=== PATIENT | female | born 1945 | race African-American/Black ===

== ENCOUNTER 2019-04-18 11:35 | Inpatient (IN) | payer OTHER ==
[~2019-04-18] VITALS: Ht 167.6 cm; Wt 95.7 kg
[2019-04-18] MEDS ORDERED: MORPHINE SULFATE 4 MG/ML CPJ (NOT FOR IM USE) IV STA (12:58)
[2019-04-18] MEDS ORDERED: ONDANSETRON HCL 4MG/2ML INJ IV STA (12:58)
[2019-04-18 13:23] LABS: BASOPHILS % 0.6 % (0.0-2.0); EOSINOPHILS % 2.4 % (0.0-5.0); HEMATOCRIT. 40.3 % (36.0-48.0); HEMOGLOBIN. 13.6 g/dL (12.0-16.0); LYMPHOCYTES % 26.2 % (20.0-50.0); MEAN CORPUSCULAR HEMOGLOBIN 32.4 pg (28.0-32.0); MEAN PLATELET VOLUME 8.4 fl (7.4-10.4); MONOCYTES % 8.1 % (2.0-8.0); NEUTROPHILS % 62.7 % (40.0-76.0); PLATELET 212 x1000/uL (130-400); RED CELL DISTRIBUTION WIDTH 12.8 % (11.6-14.6)
[2019-04-18 13:26] LABS: CLARITY URINE CLEAR (CLEAR); COLOR URINE YELLOW (YELLOW); KETONES URINE NEGATIVE (NEGATIVE); LEUKOCYTE ESTERASE URINE NEGATIVE (NEGATIVE); NITRITE URINE NEGATIVE (NEGATIVE); OCCULT BLOOD URINE NEGATIVE (NEGATIVE); PH URINE 8.5 (4.5-8.0); PROTEIN URINE NEGATIVE (NEGATIVE); SPECIFIC GRAVITY URINE 1.005 (1.005-1.030); UROBILINOGEN URINE 0.2 E.U./dL (0.2-1.0)
[2019-04-18 13:27] LABS: CHLORIDE 106 mEq/L (98-107)
[2019-04-18] MEDS ORDERED: KETOROLAC 15MG/ML VIAL IV ONE (14:30)
[2019-04-18] MEDS ORDERED: DIAZEPAM 5 MG/ML 2ML CPJ IM ONE (14:30)
[2019-04-18] MEDS ORDERED: HYDROCODONE/ACETAMINOPHEN 5/325MG TABLET PO ONE (17:00)
[2019-04-18] MEDS ORDERED: SODIUM POLYSTYRENE SULFONATE 15 G/60 ML BOT PO ONE (17:00)
[2019-04-18 20:20] VITALS: BP 136/76
[2019-04-18 20:40] VITALS: BP 141/70
[2019-04-18] MEDS ORDERED: ONDANSETRON HCL 4MG/2ML INJ IV PRN (21:45)
[2019-04-19] VITALS: BP 115/61
[2019-04-19] MEDS: MORPHINE SULFATE 2 MG/ML CPJ (NOT FOR IM USE) IV PRN ×3 (01:27→17:58)
[2019-04-19 04:00] VITALS: BP 129/59
[2019-04-19] MEDS ORDERED: ALBU90AE INH (07:51)
[2019-04-19] MEDS ORDERED: ACET-2708 MT (07:51)
[2019-04-19 08:00] VITALS: BP 148/76
[2019-04-19 08:07] LABS: BASOPHILS % 0.4 % (0.0-2.0); EOSINOPHILS % 3.2 % (0.0-5.0); HEMOGLOBIN. 13.9 g/dL (12.0-16.0); MEAN CORPUSCULAR HEMOGLOBIN 31.9 pg (28.0-32.0); MEAN CORPUSCULAR VOLUME 96.4 fL (81.0-99.0); MEAN PLATELET VOLUME 8.7 fl (7.4-10.4); MONOCYTES % 7.7 % (2.0-8.0); NEUTROPHILS % 68.7 % (40.0-76.0); PLATELET 217 x1000/uL (130-400); RED BLOOD CELL COUNT 4.36 mill/uL (4.2-5.4); RED CELL DISTRIBUTION WIDTH 13.2 % (11.6-14.6)
[2019-04-19 08:19] LABS: CHLORIDE 108 mEq/L (98-107)
[2019-04-19] MEDS: ALBUTEROL (0.083%) 2.5MG/3ML NEB HHN PRN (11:47)
[2019-04-19 12:00] VITALS: BP 142/79
[2019-04-19] MEDS ORDERED: DEXAMETHASONE 4MG/ML 1ML VIAL IV SCH (12:00)
[2019-04-19] MEDS: FAMOTIDINE 20MG/2ML VIAL IV SCH (15:15)
[2019-04-19 16:00] VITALS: BP 144/74
[2019-04-19] MEDS: DEXAMETHASONE 10 MG/ML VIAL IV SCH (17:53)
[2019-04-19 20:00] VITALS: BP 146/79
[2019-04-19] MEDS: BISACODYL 5MG TABLET PO PRN (21:27)
[2019-04-19] MEDS: HYDROCODONE/ACETAMINOPHEN 5/325MG TABLET PO PRN (21:29)
[2019-04-20] VITALS: BP 154/84
[2019-04-20] MEDS: MORPHINE SULFATE 2 MG/ML CPJ (NOT FOR IM USE) IV PRN (00:30)
[2019-04-20] MEDS: DEXAMETHASONE 10 MG/ML VIAL IV SCH ×5 (00:30→23:58)
[2019-04-20 04:00] VITALS: BP 143/73
[2019-04-20 08:00] VITALS: BP 130/74
[2019-04-20] MEDS: FAMOTIDINE 20MG/2ML VIAL IV SCH (09:01)
[2019-04-20] MEDS: HYDROCODONE/ACETAMINOPHEN 5/325MG TABLET PO PRN ×3 (09:43→23:58)
[2019-04-20] MEDS: ALBUTEROL (0.083%) 2.5MG/3ML NEB HHN PRN (10:25)
[2019-04-20 12:00] VITALS: BP 145/69
[2019-04-20 16:00] VITALS: BP 137/72
[2019-04-20] MEDS: BISACODYL 5MG TABLET PO PRN (19:57)
[2019-04-20 20:00] VITALS: BP 152/71
[2019-04-21] VITALS: BP 150/72
[2019-04-21 04:00] VITALS: BP 148/78
[2019-04-21] MEDS: DEXAMETHASONE 10 MG/ML VIAL IV SCH ×2 (05:52→12:16)
[2019-04-21] MEDS: HYDROCODONE/ACETAMINOPHEN 5/325MG TABLET PO PRN (06:07)
[2019-04-21 08:00] VITALS: BP 138/73
[2019-04-21] MEDS: FAMOTIDINE 20MG/2ML VIAL IV SCH (08:31)
[2019-04-21] MEDS ORDERED: DIPHENHYDRAMINE 50MG/ML VIAL IV NR (08:43)
[2019-04-21] MEDS ORDERED: LORATADINE 10MG TABLET PO SCH (09:00)
[2019-04-21] MEDS ORDERED: MED4 MT (11:18)
[2019-04-21 12:00] VITALS: BP 139/76
[2019-04-21 13:56] VITALS: BP 138/73
== END 2019-04-21 15:10 | disposition home or self-care (01) | DRG 552 ==
LOC: ER 11:35 → EDBEDREQ 16:52 → EDBEDREQTM 16:52 → ENRESERV 18:11 → 6EST 20:05
PROVIDERS: ADMIT Family Medicine; ATTEND Family Medicine
DX: M48.061 Spinal stenosis, lumbar region without neurogenic claudication (principal); M43.16 Spondylolisthesis, lumbar region; J45.909 Unspecified asthma, uncomplicated; E87.5 Hyperkalemia; G89.29 Other chronic pain; E66.9 Obesity, unspecified; Z88.0 Allergy status to penicillin; Z90.710 Acquired absence of both cervix and uterus; Z68.34 Body mass index [BMI] 34.0-34.9, adult; Z90.49 Acquired absence of other specified parts of digestive tract
CPT/HCPCS: 36415; 72131; 72148; 80048; 94640; 96372; 96374; 96375; 97116; 97162; 99285; J1100; J1200; J1885; J2270; J2405; J3490; J7611